=== PATIENT | male | born 1990 | race Caucasian/White ===

== ENCOUNTER 2018-06-10 20:14 | Emergency (ER) | payer SELFPAY ==
[2018-06-10] MEDS ORDERED: LORazepam 0.5 MG Tab PO ONE (21:10)
--- NOTE | 2018-06-10 21:16 | EDM.PDOCBH ---
ED HPI GENERAL MEDICAL PROBLEM - General Chief Complaint: Behavioral/Psych Stated Complaint: PANIC ATTACK Time Seen by Provider: 06/10/18 20:55 Source of Information: Reports: Patient, Old Records (previous ER records. ) History Limitations: Reports: No Limitations - History of Present Illness INITIAL COMMENTS - FREE TEXT/NARRATIVE: 28-year-old male presents for evaluation and treatment of panic attacks. Patient reports he has been next ranting "anxiety and panic attacks "since he was young, at the age of [age]. Patient moved to [place] from [place] approximately 5 months ago. He has not yet established with primary care provider. Review records show he has been seen in the ED in [place] on multiple occasions, prescribed hydroxyzine. Review of the [place] prescription drug registry he has received Xanax on 2 different occasions from Yanet Valdez in [place]. Patient reports he's been on multiple medications for depression and anxiety. At this point he takes Zoloft daily and Xanax. He has been not of Xanax for the last week. patient reports he experiences anxiety daily, this does not interfere with his work and is able to work like normal but experiences panic attacks daily after coming home from work. He reports that his arms and face feel numb and tingly. He extends expresses chest heaviness, shortness of breath and abdominal discomfort. He describes a globus sensation. Reports problems with falling asleep and staying asleep. 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 - Related Data Allergies Allergy/AdvReac Type Severity Reaction Status Date / Time No Known Allergies Allergy Verified 06/10/18 20:24 Home Meds: Home Meds Citalopram [Citalopram HBr] 20 mg PO DAILY 03/28/18 [History] traZODone HCl [Trazodone HCl] 50 mg PO DAILY 03/28/18 [History] Sertraline [Zoloft] 0 mg PO DAILY 06/10/18 [History] hydrOXYzine HCl [Atarax] 25 mg PO Q6H PRN #20 tab 06/10/18 [Rx] Past Medical History HEENT History: Reports: None Cardiovascular History: Reports: Heart Murmur, Other (See Below) Other Cardiovascular History: 2 heart surgeries Respiratory History: Reports: None Gastrointestinal History: Reports: None Genitourinary History: Reports: None Musculoskeletal History: Reports: None Neurological History: Reports: None Psychiatric History: Reports: Anxiety, Depression, Panic Attack, PTSD Endocrine/Metabolic History: Reports: None Hematologic History: Reports: None Immunologic History: Reports: None Oncologic (Cancer) History: Reports: None Dermatologic History: Reports: None - Infectious Disease History Infectious Disease History: Reports: None - Past Surgical History Head Surgeries/Procedures: Reports: None Cardiovascular Surgical History: Reports: None Social & Family History - Family History Family Medical History: Noncontributory - Tobacco Use Smoking Status *Q: Current Some Day Smoker Years of Tobacco use: 5 Packs/Tins Daily: 0.1 - Caffeine Use Caffeine Use: Reports: Soda - Recreational Drug Use Drug Use in Last 12 Months: Yes Recreational Drug Type: Reports: Marijuana/Hashish Recreational Drug Use Frequency: Not Used In Over 2 Months ED ROS GENERAL - Review of Systems Review Of Systems: See Below Respiratory: Reports: Shortness of Breath Cardiovascular: Reports: Chest Pain GI/Abdominal: Reports: Abdominal Pain Neurological: Reports: Numbness, Tingling Psychiatric: Reports: Anxiety ED EXAM, BEHAVIORAL HEALTH - Physical Exam Exam: See Below Exam Limited By: No Limitations General Appearance: Alert, WD/WN, No Apparent Distress Respiratory/Chest: No Respiratory Distress, Lungs Clear, Normal Breath Sounds Cardiovascular: Systolic Murmur (grade 3 systolic heart murmur - states has had this since he was an , describes a VSD as the primary cause, has had open heart surgery x 2) Neurological: Alert, Normal Mood/Affect, Normal Cognition Psychiatric: Alert, Normal Affect, Normal Cognition, Normal Mood Skin Exam: Warm, Dry, Normal color COURSE, BEHAVIORAL HEALTH COMP - Course Vital Signs: Last Vital Signs Temp 97.5 F 06/10/18 20:21 Pulse 50 L 06/10/18 20:21 Resp 18 06/10/18 20:21 BP 124/51 L 06/10/18 20:21 Pulse Ox 97 06/10/18 20:21 Orders, Labs, Meds: Medications Discontinued Medications Generic Name Dose Route Start Last Admin Trade Name Freq PRN Reason Stop Dose Admin Lorazepam 0.5 mg 06/10/18 21:10 06/10/18 21:14 Ativan PO 06/10/18 21:11 0.5 mg ONETIME ONE Administration Re-Assessment/Re-Exam: 21:10 Will give PO ativan in the ER tonight and prescribe hydroxyzine. Educated the ER does not manage chronic problems and he will need to follow-up with family medicine or psychiatry for further management. Discharge instructions as documented. Departure - Departure Time of Disposition: 21:11 Disposition: Home, Self-Care 01 Condition: Fair Clinical Impression: Anxiety, Panic disorder - Discharge Information *PRESCRIPTION DRUG MONITORING PROGRAM REVIEWED*: No *COPY OF PRESCRIPTION DRUG MONITORING REPORT IN PATIENT ASTRID: No Prescriptions: hydrOXYzine HCl [Atarax] 25 mg PO Q6H PRN #20 tab PRN Reason: Anxiety Instructions: Panic Attack Referrals: PCP,None [Primary Care Provider] - Yanet Valdez NP [Ordering Only Provider] - Forms: ED Department Discharge Additional Instructions: Recommend seeing a counselor or psychiatrist for further management of your anxiety and panic attacks. A brochure of local specialist has been provided for you. A counselor can teach you coping mechanisms to help manage your anxiety. Often exercise, deep breathing and calming activities such as yoga can be beneficial for your health and help with your anxiety. Follow-up with family medicine as needed for further medication refills. Unfortunately the ER does not manage chronic anxiety and you may not receive a medication refill in the future. Hydroxyzine as prescribed. 1 tab PO every 6 hours prn anxiety and panic attacks. Consider taking OTC melatonin to help with your sleep issues. Please return to the ER should your symptoms change or worsen.
== END 2018-06-10 21:21 | disposition home or self-care (01) ==
LOC: JD.ED 20:14
DX: F41.0 Panic disorder [episodic paroxysmal anxiety] (principal); F17.210 Nicotine dependence, cigarettes, uncomplicated; Z79.899 Other long term (current) drug therapy
CPT/HCPCS: 99283; A9270